=== PATIENT | female | born 1960 | race Caucasian/White ===

== ENCOUNTER → 2018-04-26 | Outpatient (CLI) | payer BC ==
--- NOTE | 2018-04-26 11:45 | FL ---
SINGLE CONTRAST BARIUM SWALLOW: CLINICAL HISTORY: 58-year-old female with reflux for 2 weeks. History of lap band placement in 2009. TECHNIQUE: Single contrast exam performed with only 1 ounce of thin barium ingested Total fluoroscopy time: 1 minute 58 seconds Total images: 12 FINDINGS: The patient was instructed to take small swallows. After the initial small swallow, there was a trick le flow across the patient's lap band which is appropriately positioned. Subsequent larger small swal low showed pooling of contrast in the pouch and lower esophagus. Exaggerated contractions are noted i n lead to recurrent episodes of gastroesophageal and intraesophageal reflux. On the 10 minute post pr ocedure radiograph, possibly half of the contrast has passed into proximal small bowel wall half riya ins pooled in the distal esophagus. Again, only 1 ounce of thin barium was ingested. IMPRESSION: 1. No evidence for lap band prolapse. 2. However, the lap band is very tight with a moderate to severe relative obstruction. The patient dr ank only 1 ounce of contrast and after 10 minutes, only half has passed. 3. The tight lap band leads to recurrent episodes of gastroesophageal and intraesophageal reflux.
[2018-04-26 11:48] VITALS: BP 139/65; PULSE 64; TEMP 98.7; BMI 38.2
--- NOTE | 2018-04-26 12:18 | P.HPBAR ---
Bariatric H&P - History & Physicial H&P Date: 04/26/18 History & Physicial: Visit/CC: band adjustment (dysphagia x 1 month) Patient initial contact: Initial weight: 136.078 kg Initial weight in pounds: 300.00 Height: 5 ft 3 in Initial BMI: 53.1 Last weight: Current weight: 97.931 kg Current weight in pounds: 215.90 Current BMI: 38.2 [place] body weight (based on NIH guidelines): 52.163 kg Excess body weight loss: 45.4% The patient is a 58 year-old F who presents for Bariatric Assessment. Patient presents today for LAP-BAND adjustment. She's had dysphagia for over a month. Patient describes that she swallowed a light savor hole and then had irritation of her esophagus after this. Patient had an esophagram performed this morning which shows no evidence of prolapse. Patient does have some obstruction of the area of the band. The contrast is very slow to empty into the stomach. Past Medical History Past Medical History: Hyperlipidemia, Hypertension History of Any Multi-Drug Resistant Organisms: None Reported Past Surgical History: Bariatric Surgery, Section, Cholecystectomy Additional Past Surgical History / Comment(s): csection x 1, bariatric lap band 2009 (Dr. Freeman Chavez), cholecystectomy 2016 Past Anesthesia/Blood Transfusion Reactions: No Reported Reaction Additional Past Anesthesia/Blood Transfusion Reaction / Comm: No blood transfusion to date Past Psychological History: Depression Additional Psychological History / Comment(s): Takes prescription medication ( can not remember the name) Smoking Status: Never smoker Past Alcohol Use History: Rare Past Drug Use History: None Reported Surgical - Exam Vital Signs Temp Pulse BP 98.7 F 64 139/65 04/26/18 10:49 04/26/18 10:49 04/26/18 10:49 - General well developed, no distress - Eyes PERRL - ENT normal pinna - Neck no masses - Respiratory normal expansion - Cardiovascular Rhythm: regular - Abdomen Abdomen: soft, non tender Bariatric Assessment & Plan Plan: The patient's lap band was adjusted. She had 7.2 mL removed from her band. Her band was emptied. She was ill drink water without difficulty. She'll follow-up in 2-4 weeks. Bariatric Checklist Checklist: Plan: Checklist: EGD: 1. Hiatal hernia: 2. H. Pylori: HgbA1c: Vitamin D: Smoking: Never smoker Primary care physician referral: Abbie Chan ([place], [place]) Psychiatry clearance: Cardiology clearance: Sleep study: Diet journal: VTE risk score: VTE risk level: Rehab needs at discharge:
== END | disposition home or self-care (01) ==
LOC: BARWHC3 08:47
PROVIDERS: ATTEND Surgery
DX: Z46.51 Encounter for fitting and adjustment of gastric lap band (principal); K95.09 Other complications of gastric band procedure; R13.10 Dysphagia, unspecified; K21.9 Gastro-esophageal reflux disease without esophagitis; F32.9 Major depressive disorder, single episode, unspecified; Z98.84 Bariatric surgery status; Z90.49 Acquired absence of other specified parts of digestive tract; Z98.890 Other specified postprocedural states
CPT/HCPCS: 74220; 99203

== ENCOUNTER → 2018-06-13 | Outpatient (CLI) | payer BC ==
[2018-06-13 14:11] VITALS: BP 104/69; PULSE 69; TEMP 98.3; BMI 42.7
--- NOTE | 2018-06-13 18:06 | P.HPBAR ---
Bariatric H&P - History & Physicial H&P Date: 06/13/18 History & Physicial: Visit/CC: band fill Patient initial contact: Initial weight: 136.078 kg Initial weight in pounds: 300.00 Height: 5 ft 3 in Initial BMI: 53.1 Last weight: Current weight: 109.406 kg Current weight in pounds: 241.20 Current BMI: 42.7 [place] body weight (based on NIH guidelines): 52.163 kg Excess body weight loss: 31.7% The patient is a 58 year-old F who presents for Bariatric Assessment. Patient presents today for lab band follow up. The patient is requesting a fill of her band.. Past Medical History Past Medical History: Hyperlipidemia, Hypertension History of Any Multi-Drug Resistant Organisms: None Reported Past Surgical History: Bariatric Surgery, Section, Cholecystectomy Additional Past Surgical History / Comment(s): csection x 1, bariatric lap band 2009 (Dr. Freeman Chavez), cholecystectomy 2015 Past Anesthesia/Blood Transfusion Reactions: No Reported Reaction Additional Past Anesthesia/Blood Transfusion Reaction / Comm: No blood transfusion to date Smoking Status: Never smoker Surgical - Exam Vital Signs Temp Pulse BP 98.3 F 69 104/69 06/13/18 14:08 06/13/18 14:08 06/13/18 14:08 - General well developed, no distress - Eyes PERRL - ENT normal pinna - Neck no masses - Respiratory normal expansion - Cardiovascular Rhythm: regular - Abdomen Abdomen: soft, non tender Bariatric Assessment & Plan Plan: Patient's lap band was adjusted. She had 5 mL added to her band. She was able to water without difficulty. She'll follow-up in 4 weeks. Bariatric Checklist Checklist: Plan: Checklist: EGD: 1. Hiatal hernia: 2. H. Pylori: HgbA1c: Vitamin D: Smoking: Never smoker Primary care physician referral: Abbie Chan ([place], [place]) Psychiatry clearance: Cardiology clearance: Sleep study: Diet journal: VTE risk score: VTE risk level: Rehab needs at discharge:
== END ==
LOC: BARWHC3 13:27
PROVIDERS: ATTEND Surgery
DX: Z48.815 Encounter for surgical aftercare following surgery on the digestive system (principal); Z98.84 Bariatric surgery status
CPT/HCPCS: 99212

== ENCOUNTER → 2020-10-14 | Outpatient (CLI) | payer OTHER ==
--- NOTE | 2020-11-12 12:42 | P.HPBAR ---
Bariatric H&P - History & Physicial H&P Date: 10/14/20 History & Physicial: Visit/CC: Patient initial contact: Initial weight: 136.078 kg Initial weight in pounds: 300.00 Height: 5 ft 3 in Initial BMI: 53.1 Last weight: Current weight: 142.882 kg Current weight in pounds: 315.00 Current BMI: 55.7 [place] body weight (based on NIH guidelines): 52.163 kg Excess body weight loss: The patient is a 60 year-old F who presents for Bariatric Assessment. Patient presents today for LAP-BAND adjustment. She is currently requesting a fill she is hungry Past Medical History Past Medical History: Hyperlipidemia, Hypertension History of Any Multi-Drug Resistant Organisms: None Reported Past Surgical History: Bariatric Surgery, Section, Cholecystectomy Additional Past Surgical History / Comment(s): csection x 1, bariatric lap band 2009 (Dr. Freeman Chavez), cholecystectomy 2015 Past Anesthesia/Blood Transfusion Reactions: No Reported Reaction Additional Past Anesthesia/Blood Transfusion Reaction / Comm: No blood transfusion to date Past Psychological History: Depression Additional Psychological History / Comment(s): Takes prescription medication (can not remember the name) Smoking Status: Never smoker Past Alcohol Use History: Rare Past Drug Use History: None Reported Surgical - Exam Vital Signs Temp Pulse BP 98.7 F 90 171/80 10/14/20 14:26 10/14/20 14:26 10/14/20 14:26 - General well developed, well nourished, no distress - Eyes PERRL - ENT normal pinna - Neck no masses - Respiratory normal expansion - Cardiovascular Rhythm: regular - Abdomen Abdomen: soft Bariatric Checklist Checklist: Plan: Checklist: EGD: 1. Hiatal hernia: 2. H. Pylori: HgbA1c: Vitamin D: Smoking: Never smoker Primary care physician referral: Abbie Chan ([place], [place]) Psychiatry clearance: Cardiology clearance: Sleep study: Diet journal: VTE risk score: VTE risk level: Rehab needs at discharge:
== END ==
CPT/HCPCS: 99212

== ENCOUNTER → 2020-10-18 | Outpatient (CLI) | payer OTHER ==
[2020-10-18 12:14] VITALS: BP 90/42; PULSE 82; TEMP 98.2; BMI 53.4
--- NOTE | 2020-10-18 12:58 | P.HPBAR ---
Bariatric H&P - History & Physicial H&P Date: 10/18/20 History & Physicial: Visit/CC: lap band follow up Patient initial contact: Initial weight: 136.078 kg Initial weight in pounds: 300.00 Height: 5 ft 3 in Initial BMI: 53.1 Last weight: Current weight: 136.985 kg Current weight in pounds: 302.00 Current BMI: 53.4 [place] body weight (based on NIH guidelines): 52.163 kg Excess body weight loss: The patient is a 60 year-old F who presents for Bariatric Assessment. Patient complaints of dysphagia for laparoscopic adjusted. She is requesting fluid to be removed. Past Medical History Past Medical History: Hyperlipidemia, Hypertension History of Any Multi-Drug Resistant Organisms: None Reported Past Surgical History: Bariatric Surgery, Section, Cholecystectomy Additional Past Surgical History / Comment(s): csection x 1, bariatric lap band 2009 (Dr. Freeman Chavez), cholecystectomy 2015 Past Anesthesia/Blood Transfusion Reactions: No Reported Reaction Additional Past Anesthesia/Blood Transfusion Reaction / Comm: No blood transfusion to date Past Psychological History: Depression Additional Psychological History / Comment(s): Takes prescription medication (can not remember the name) Smoking Status: Never smoker Past Alcohol Use History: Rare Past Drug Use History: None Reported Surgical - Exam Vital Signs Temp Pulse BP 98.2 F 82 90/42 10/18/20 12:11 10/18/20 12:11 10/18/20 12:11 - General well developed, well nourished, no distress - Eyes PERRL - Abdomen Abdomen: soft, non tender Bariatric Assessment & Plan Plan: Patient LAP-BAND was adjusted. She had 2 mL remove her band. She currently has 5 mL in the band. Bariatric Checklist Checklist: Plan: Checklist: EGD: 1. Hiatal hernia: 2. H. Pylori: HgbA1c: Vitamin D: Smoking: Never smoker Primary care physician referral: Abbie Chan ([place], [place]) Psychiatry clearance: Cardiology clearance: Sleep study: Diet journal: VTE risk score: VTE risk level: Rehab needs at discharge:
== END ==
LOC: BARWHC3 11:11
PROVIDERS: ATTEND Surgery
DX: Z46.51 Encounter for fitting and adjustment of gastric lap band (principal); Z98.84 Bariatric surgery status; E78.5 Hyperlipidemia, unspecified; I10 Essential (primary) hypertension; F32.9 Major depressive disorder, single episode, unspecified
CPT/HCPCS: 99212

== ENCOUNTER → 2020-11-11 | Outpatient (CLI) | payer OTHER ==
[2020-11-11 13:29] VITALS: BP 164/81; PULSE 91; RESP 18; TEMP 98; BMI 56.0
[2020-11-11 15:21] LABS: Basophils # (A) 0.1 k/uL (0-0.2); Basophils % (A) 1 %; Eosinophils # (A) 0.2 k/uL (0-0.7); Eosinophils % (A) 2 %; HCT 37.7 % (34.0-46.0); HGB 12.4 gm/dL (11.4-16.0); Lymphocytes # (A) 2.3 k/uL (1.0-4.8); Lymphocytes % (A) 27 %; MCH 30.1 pg (25.0-35.0); MCV 91.3 fL (80.0-100.0); Mean Platelet Volume 7.9; Monocytes # (A) 0.6 k/uL (0-1.0); Monocytes % (A) 6 %; Neutrophils # (A) 5.5 k/uL (1.3-7.7); Neutrophils % (A) 63 %; Platelet Count 241 k/uL (150-450); RBC 4.13 m/uL (3.80-5.40); RDW 13.2 % (11.5-15.5); WBC 8.7 k/uL (3.8-10.6)
[2020-11-11 21:49] LABS: African American GFR (CKD) 56.1 (60.0-200.0); Albumin 4.4 g/dL (3.80-4.90); Anion Gap 10.4 mmol/L (4.00-12.00); BUN/Creat Ratio 17.5 Ratio (12.00-20.00); Calcium 9.4 mg/dL (8.7-10.3); Carbon Dioxide 25.6 mmol/L (21.6-31.8); Globulin 2.2 g/dL (1.6-3.3); Non-African American GFR(CKD) 48.4 (60.0-200.0); Potassium 4.7 mmol/L (3.5-5.5); Total Bilirubin 0.5 mg/dL (0.2-1.2); Total Protein 6.6 g/dL (6.2-8.2)
--- NOTE | 2020-11-12 11:43 | P.HPBAR ---
Bariatric H&P - History & Physicial H&P Date: 11/11/20 History & Physicial: Visit/CC: Lap band follow up Patient initial contact: Initial weight: 136.078 kg Initial weight in pounds: 300.00 Height: 5 ft 3 in Initial BMI: 53.1 Last weight: Current weight: 143.335 kg Current weight in pounds: 316.00 Current BMI: 56.0 [place] body weight (based on NIH guidelines): 52.163 kg Excess body weight loss: The patient is a 60 year-old F who presents for Bariatric Assessment. Patient presents today for LAP-BAND follow-up. She is requesting a fill. She is hungry. Past Medical History Past Medical History: Hyperlipidemia, Hypertension History of Any Multi-Drug Resistant Organisms: None Reported Past Surgical History: Bariatric Surgery, Section, Cholecystectomy Additional Past Surgical History / Comment(s): csection x 1, bariatric lap band 2009 (Dr. Freeman Chavez), cholecystectomy 2015 Past Anesthesia/Blood Transfusion Reactions: No Reported Reaction Additional Past Anesthesia/Blood Transfusion Reaction / Comm: No blood transfusion to date Smoking Status: Never smoker Surgical - Exam Vital Signs Temp Pulse Resp BP 98 F 91 18 164/81 11/11/20 13:25 11/11/20 13:25 11/11/20 13:25 11/11/20 13:25 - General well developed, well nourished, no distress - Eyes PERRL - ENT normal pinna - Neck no masses - Respiratory normal expansion - Cardiovascular Rhythm: regular - Abdomen Abdomen: soft, non tender Results - Labs 11/11/20 14:47 11/11/20 14:47 Abnormal Lab Results - Last 24 Hours (Table) 11/11/20 Range/Units 14:47 Est GFR (CKD-EPI)AfAm 56.1 L (60.0-200.0) Est GFR (CKD-EPI)NonAf 48.4 L (60.0-200.0) Glucose 124 H (70-110) mg/dL Diabetes panel 11/11/20 Range/Units 14:47 Sodium 142 (135-145) mmol/L Potassium 4.7 (3.5-5.5) mmol/L Chloride 106 (96-109) mmol/L Carbon Dioxide 25.6 (21.6-31.8) mmol/L BUN 21.0 (9.0-27.0) mg/dL Creatinine 1.2 (0.6-1.5) mg/dL Glucose 124 H (70-110) mg/dL Calcium 9.4 (8.7-10.3) mg/dL AST 27 (13-35) U/L ALT 19 (8-44) U/L Alkaline Phosphatase 70 (41-126) U/L Total Protein 6.6 (6.2-8.2) g/dL Albumin 4.40 (3.80-4.90) g/dL Calcium panel 11/11/20 Range/Units 14:47 Calcium 9.4 (8.7-10.3) mg/dL Albumin 4.40 (3.80-4.90) g/dL Pituitary panel 11/11/20 Range/Units 14:47 Sodium 142 (135-145) mmol/L Potassium 4.7 (3.5-5.5) mmol/L Chloride 106 (96-109) mmol/L Carbon Dioxide 25.6 (21.6-31.8) mmol/L BUN 21.0 (9.0-27.0) mg/dL Creatinine 1.2 (0.6-1.5) mg/dL Glucose 124 H (70-110) mg/dL Calcium 9.4 (8.7-10.3) mg/dL Adrenal panel 11/11/20 Range/Units 14:47 Sodium 142 (135-145) mmol/L Potassium 4.7 (3.5-5.5) mmol/L Chloride 106 (96-109) mmol/L Carbon Dioxide 25.6 (21.6-31.8) mmol/L BUN 21.0 (9.0-27.0) mg/dL Creatinine 1.2 (0.6-1.5) mg/dL Glucose 124 H (70-110) mg/dL Calcium 9.4 (8.7-10.3) mg/dL Total Bilirubin 0.5 (0.2-1.2) mg/dL AST 27 (13-35) U/L ALT 19 (8-44) U/L Alkaline Phosphatase 70 (41-126) U/L Total Protein 6.6 (6.2-8.2) g/dL Albumin 4.40 (3.80-4.90) g/dL Bariatric Assessment & Plan Plan: Patient LAP-BAND was adjusted. She had 1 mL added to the band. She'll follow- up in 4 weeks. Bariatric Checklist Checklist: Plan: Checklist: EGD: 1. Hiatal hernia: 2. H. Pylori: HgbA1c: Vitamin D: Smoking: Never smoker Primary care physician referral: Abbie Chan ([place], [place]) Psychiatry clearance: Cardiology clearance: Sleep study: Diet journal: VTE risk score: VTE risk level: Rehab needs at discharge:
== END ==
LOC: BARWHC3 13:08
PROVIDERS: ATTEND Surgery
DX: Z46.51 Encounter for fitting and adjustment of gastric lap band (principal); E78.5 Hyperlipidemia, unspecified; I10 Essential (primary) hypertension; Z98.84 Bariatric surgery status
CPT/HCPCS: 36415; 80053; 85025; 93005; 99212

== ENCOUNTER 2020-12-10 07:38 | Day surgery (SDC) | payer OTHER ==
[2020-12-05 12:20] VITALS: BMI 53.7
[~2020-12-10 07:38] MED LIST: DEXAMETHASONE SOD PHOSPHATE 4 MG/ML 1 ML VIAL IV ONE; LACTATED RINGERS 1,000 ML IV SCH; LIDOCAINE 1% (10MG/ML) FOR IV START INTRADERMA PRN; MIDAZOLAM 2 MG/2 ML VIAL IV PRN; ONDANSETRON 4 MG/2 ML VIAL IVP ONE; ceFAZolin 3 GM in SODIUM CHLORIDE 0.9% 100 ML IVPB PRN
[2020-12-10] MEDS ORDERED: HEPARIN SODIUM,PORCINE/PF 5,000 UNIT/0.5 ML SYRINGE SQ ONE (08:12)
[2020-12-10] MEDS ORDERED: ACETAMINOPHEN TAB 500 MG TAB ONE (08:13)
[2020-12-10] MEDS ORDERED: SCOPOLAMINE 1.5MG/72HR PATCH TRANSDERM ONE (08:40)
[2020-12-10 08:44] LABS: Glucose,Whole Blood 127 mg/dL (75-99)
--- NOTE | 2020-12-10 08:57 | P.GSHP ---
History of Present Illness H&P Date: 12/10/20 Chief Complaint: Incarcerated umbilical hernia This is a 60-year-old female who presents today for laparoscopic robotic system repair of incarcerated umbilical hernia. Patient developed a 5 cm mass at her umbilicus Past Medical History Past Medical History: Diabetes Mellitus, Hyperlipidemia, Hypertension, Renal Disease, Sleep Apnea/CPAP/BIPAP Additional Past Medical History / Comment(s): received both covid vaccines,monitoring kidney levels,uses cpap History of Any Multi-Drug Resistant Organisms: None Reported Past Surgical History: Bariatric Surgery, Section, Cholecystectomy Additional Past Surgical History / Comment(s): csection x 1, bariatric lap band 2009 (Dr. Freeman Chavez)-fluid is present, cholecystectomy 2015 Past Anesthesia/Blood Transfusion Reactions: No Reported Reaction Additional Past Anesthesia/Blood Transfusion Reaction / Comment(s): No blood transfusion to date Smoking Status: Never smoker - Past Family History Mother Family Medical History: No Reported History Father Family Medical History: Cancer Additional Family Medical History / Comment(s): leukemia Medications and Allergies Home Medications Medication Instructions Recorded Confirmed Type lisinopriL 20 mg PO QAM 06/13/18 12/05/20 History Ergocalciferol [Vitamin D2 (1250 1,250 mcg PO WEEKLY 10/14/20 12/05/20 History Mcg = [id number] Iu)] Pioglitazone [Actos] 45 mg PO DAILY 10/14/20 12/05/20 History Rosuvastatin Calcium [Crestor] 40 mg PO HS 10/14/20 12/05/20 History Super C 78 mg PO DAILY 12/05/20 12/05/20 History Super Vitamin D 50 mcg PO DAILY 12/05/20 12/05/20 History Venlafaxine HCl [Effexor XR] 37.5 mg PO QAM 12/05/20 12/05/20 History Allergies Allergy/AdvReac Type Severity Reaction Status Date / Time No Known Allergies Allergy Verified 12/10/20 07:58 Surgical - Exam Vital Signs Temp Pulse Resp BP Pulse Ox 97.8 F 80 18 134/63 96 12/10/20 08:09 12/10/20 08:09 12/10/20 08:09 12/10/20 08:09 12/10/20 08:09 - General well developed, well nourished, no distress - Eyes PERRL - ENT normal pinna - Neck no masses - Respiratory normal expansion - Cardiovascular Rhythm: regular - Abdomen Abdomen: soft, non tender Hernia: umbilical (5 cm incarcerated umbilical hernia) Results - Labs Abnormal Lab Results - Last 24 Hours (Table) 12/10/20 Range/Units 08:27 POC Glucose (mg/dL) 127 H (75-99) mg/dL Assessment and Plan Assessment: Incarcerated hernia. We'll perform laparoscopic robotic-assisted repair.
[2020-12-10] MEDS ORDERED: fentaNYL (PF) 50 MCG/ML 2 ML AMP IVP ONE (09:10)
[2020-12-10] MEDS ORDERED: LIDOCAINE 1% INJ 10MG/ML (20 ML MDV) ONE (09:26)
[2020-12-10] MEDS ORDERED: ROCURONIUM 10 MG/ML (5 ML VIAL) IV ONE (09:26)
[2020-12-10] MEDS ORDERED: GLYCOPYRROLATE 0.2 MG/ML 2 ML VIAL ONE (09:26)
[2020-12-10] MEDS ORDERED: NEOSTIGMINE 1 MG/ML 10 ML VIAL ONE (09:26)
[2020-12-10] MEDS ORDERED: ePHEDrine SULFATE/0.9% NACL/PF 50 MG/5 ML SYRINGE IV ONE (09:26)
[2020-12-10] MEDS ORDERED: KETOROLAC 15 MG/ML 1 ML VIAL ONE (09:26)
[2020-12-10] MEDS ORDERED: fentaNYL (PF) 50 MCG/ML 2 ML AMP ONE (09:26)
[2020-12-10] MEDS ORDERED: KETAMINE 10 MG/ML 20 ML VIAL ONE (09:26)
[2020-12-10] MEDS ORDERED: PROPOFOL 10 MG/ML 20 ML VIAL IV ONE (09:26)
[2020-12-10] MEDS ORDERED: SUCCINYLCHOLINE CHLORIDE VIAL 200 MG/10 ML VIAL IV ONE (09:26)
[2020-12-10] MEDS ORDERED: BUPIVACAINE (PF) 0.25% 30 ML VIAL SQ ONE (10:01)
[2020-12-10] MEDS ORDERED: LACTATED RINGERS 1,000 ML IV ONE (10:17)
--- NOTE | 2020-12-10 10:41 | P.OP ---
Date of Procedure: 12/10/20 Preoperative Diagnosis: Incarcerated umbilical hernia Postoperative Diagnosis: Incarcerated umbilical hernia Procedure(s) Performed: Laparoscopic robotic-assisted repair of incarcerated local hernia Partial omentectomy Anesthesia: PRISCILLA Surgeon: Freeman Chavez Estimated Blood Loss (ml): 5 Pathology: other (Omentum) Condition: stable Disposition: PACU Description of Procedure: The patient was placed on the operating table in the supine position. He received general anesthesia. His abdomen was prepped and draped usual fashion. Using a 5 mm optical trocar under direct visualization the peritoneal cavity was entered in the left upper quadrant. The abdomen was then insufflated. The laparoscope was placed back into the perineal cavity. Next a 8 mm robotic trocar was placed in the left lower quadrant and a 12 mm robotic trocar was placed in the left lateral position. The original 5 mm trocar was exchanged for a 8 mm robotic trocar. The patient's placed in the left side up position. And the patient was undocked the robot. The umbilical hernia was visualized. Using hook cautery the peritoneum over the umbilical hernia was excised. The incarcerated omentum was dissected free and sent to pathology. The fascial opening was repaired using 0V LOC suture. Next a piece of 11 cm round ventral light ST mesh was placed into the. Cavity and secured with 2 OV lock suture. The patient was undocked the robot. The needles were retrieved. The fascia of the 12 mm trocar site was closed with 0 Ethibond suture. Skin was closed interrupted 3-0 Monocryl suture. Dermabond dressings was applied. Patient top procedure well and was sent to recovery room stable condition.
[2020-12-10 10:52] VITALS: RESP 16
[2020-12-10 10:58] VITALS: TEMP 98
[2020-12-10] MEDS: HYDROmorphone 0.5 MG/0.5 ML SYRINGE IVP PRN ×2 (11:04→11:28)
[2020-12-10] MEDS ORDERED: ONDANSETRON 4 MG/2 ML VIAL IVP ONE (11:25)
[2020-12-10] MEDS ORDERED: SIMETHICONE 40 MG/0.6 ML DROPS 2,000 MG/30 ML BOTTLE PO ONE (12:33)
--- NOTE | 2020-12-10 13:45 | P.ANPRN ---
Procedure Note - Anesthesia - Nerve Block Performed Bilateral Erector Spinae Single Time Out Performed: Yes Date of Procedure: 12/10/20 Procedure Start Time: :15 Procedure Stop Time: :25 Location of Patient: PreOp Indication: Acute Post-Operative Pain, Dx/Pain Location, Requested by Surgeon Specifically requested for management of pain by : Freeman Chavez Sedation Type: Sedate with meaningful contact maintained Preparation: Sterile Prep Position: Supine Catheter: None Needle Gauge: 20 Ultrasound used to visualize needle placement: Yes Ultrasound used to observe medication spread: Yes Injectate: 0.5% Ropivacaine (see comment for volume) Blood Aspirated: No Pain Paresthesia on Injection Noted: No Resistance on Injection: Normal Image Stored and Saved: Yes Events: Uneventful and Well Tolerated (30cc 0.5% Ropivacaine)
[2020-12-10] MEDS ORDERED: ACETAMINOPHEN TAB 325 MG TAB ONE (15:07)
[2020-12-10] MEDS ORDERED: ACETAMINOPHEN TAB 325 MG TAB PO ONE (15:11)
[2020-12-10 15:16] VITALS: BP 125/75; PULSE 72
== END 2020-12-10 16:45 | disposition home or self-care (01) ==
LOC: OR 07:38
PROVIDERS: ATTEND Surgery
DX: K42.0 Umbilical hernia with obstruction, without gangrene (principal); E11.9 Type 2 diabetes mellitus without complications; E78.5 Hyperlipidemia, unspecified; I10 Essential (primary) hypertension; N28.9 Disorder of kidney and ureter, unspecified; G47.30 Sleep apnea, unspecified; Z98.84 Bariatric surgery status; Z98.891 History of uterine scar from previous surgery; Z90.49 Acquired absence of other specified parts of digestive tract; Z80.6 Family history of leukemia; E66.01 Morbid (severe) obesity due to excess calories; Z68.43 Body mass index [BMI] 50.0-59.9, adult; Z79.84 Long term (current) use of oral hypoglycemic drugs; Z79.899 Other long term (current) drug therapy
CPT/HCPCS: 49653; S2900; 64999; 76942; 88305

== ENCOUNTER → 2021-02-17 | Outpatient (CLI) | payer OTHER ==
[2021-02-17 15:24] VITALS: BP 190/82; PULSE 89; TEMP 98.2; BMI 54.9
--- NOTE | 2021-02-17 15:48 | P.HPBAR ---
Bariatric H&P - History & Physicial H&P Date: 02/17/21 History & Physicial: Visit/CC: lap band follow up Patient initial contact: Initial weight: 136.078 kg Initial weight in pounds: 300.00 Height: 5 ft 3 in Initial BMI: 53.1 Last weight: Current weight: 140.614 kg Current weight in pounds: 310.00 Current BMI: 54.9 [place] body weight (based on NIH guidelines): 52.163 kg Excess body weight loss: The patient is a 60 year-old F who presents for Bariatric Assessment. Patient presents today for her LAP-BAND follow-up. She is feeling hungry and wishes of a fill. Past Medical History Past Medical History: Diabetes Mellitus, Hyperlipidemia, Hypertension, Renal Disease, Sleep Apnea/CPAP/BIPAP Additional Past Medical History / Comment(s): received both covid vaccines,monitoring kidney levels,uses cpap History of Any Multi-Drug Resistant Organisms: None Reported Past Surgical History: Bariatric Surgery, Section, Cholecystectomy Additional Past Surgical History / Comment(s): csection x 1, bariatric lap band 2009 (Dr. Freeman Chavez)-fluid is present, cholecystectomy 2016 Past Anesthesia/Blood Transfusion Reactions: No Reported Reaction Additional Past Anesthesia/Blood Transfusion Reaction / Comm: No blood transfusion to date Smoking Status: Never smoker - Past Family History Mother Family Medical History: No Reported History Father Family Medical History: Cancer Additional Family Medical History / Comment(s): leukemia Surgical - Exam Vital Signs Temp Pulse BP 98.2 F 89 190/82 02/17/21 15:22 02/17/21 15:22 02/17/21 15:22 - General well developed, well nourished, no distress - Eyes PERRL - ENT normal pinna - Neck no masses - Respiratory normal expansion - Cardiovascular Rhythm: regular - Abdomen Abdomen: soft, non tender Bariatric Assessment & Plan Plan: Morbid obesity. BMI is 55. Patient's LAP-BAND was just. She had 1 mL added to the band. She currently is 9.5 mL in the band. Bariatric Checklist Checklist: Plan: Checklist: EGD: 1. Hiatal hernia: 2. H. Pylori: HgbA1c: Vitamin D: Smoking: Never smoker Primary care physician referral: Abbie Chan ([place], [place]) Psychiatry clearance: Cardiology clearance: Sleep study: Diet journal: VTE risk score: VTE risk level: Rehab needs at discharge:
== END ==
LOC: BARWHC3 14:45
PROVIDERS: ATTEND Surgery
DX: Z46.51 Encounter for fitting and adjustment of gastric lap band (principal); E66.01 Morbid (severe) obesity due to excess calories; E11.9 Type 2 diabetes mellitus without complications; E78.5 Hyperlipidemia, unspecified; I10 Essential (primary) hypertension; Z68.43 Body mass index [BMI] 50.0-59.9, adult
CPT/HCPCS: 99212